=== PATIENT | male | born 1995 | race African-American/Black ===

== ENCOUNTER 2016-05-17 20:15 | Emergency (ER) | payer OTHER ==
--- NOTE | 2016-05-17 21:10 | UC ---
Throat Pain/Nasal Abdoul HPI - HPI Summary HPI Summary: complaint of sore throat that started this morning nasal congestion started thought it was his allergies bought some sinex nasal spray- used it once and now his throat is burning pain swollen lymph nodes denies fever denies headache, ear pain, cough took some bandryl allergy medicine yesterday - History of Current Complaint Chief Complaint: UC Stated Complaint: THROAT BURNING AFTER NOSE SPRAY Time Seen by Provider: 05/17/16 20:44 Hx Obtained From: Patient Related History: Seasonal Allergies - Allergies/Home Medications Allergies/Adverse Reactions: Allergies Allergy/AdvReac Type Severity Reaction Status Date / Time Latex Allergy Rash Verified 01/28/16 20:45 Home Medications: Home Medications Oxymetazoline HCl [Vicks Sinex Severe Nasal] 0.05 % NA 05/17/16 [History] PMH/Surg Hx/FS Hx/Imm Hx Previously Healthy: Yes Endocrine History Of: Denies: Diabetes, Thyroid Disease Cardiovascular History Of: Denies: Cardiac Disorders, Hypertension, Pacemaker/ICD, Myocardial Infarction Respiratory History Of: Denies: COPD, Asthma GI/ History Of: Denies: Gastroesophageal Reflux, Renal Disease Neurological History Of: Denies: CVA, Dementia, Seizures Psychological History Of: Reports: Anxiety, Depression Other History Of: Negative For: Anticoagulant Therapy - Surgical History Surgical History: None - Family History Known Family History: Positive: Cardiac Disease - mother Negative: Hypertension, Diabetes - Social History Occupation: Employed Full-time Lives: With Family Alcohol Use: None Substance Use Type: None Smoking Status (MU): Heavy Every Day Tobacco Smoker Type: Cigarettes When Did the Patient Quit Smoking/Using Tobacco: 04/20/14 Household Exposure Type: Cigarettes - Immunization History Most Recent Influenza Vaccination: n/a Most Recent Tetanus Shot: up to date Most Recent Pneumonia Vaccination: unknown Review of Systems Constitutional: Negative Skin: Negative Eyes: Negative ENT: Sore Throat Respiratory: Negative Cardiovascular: Negative Gastrointestinal: Negative Genitourinary: Negative Motor: Negative Neurovascular: Negative Musculoskeletal: Negative Neurological: Negative Psychological: Negative All Other Systems Reviewed And Are Negative: Yes Physical Exam Triage Information Reviewed: Yes Appearance: No Pain Distress, Well-Nourished Vital Signs Reviewed: Yes Eyes: Positive: Conjunctiva Clear ENT: Positive: Pharyngeal erythema, Nasal congestion, Nasal drainage, Tonsillar swelling. Negative: Tonsillar exudate Neck: Positive: No Lymphadenopathy Respiratory: Positive: Lungs clear, Normal breath sounds, No respiratory distress Cardiovascular: Positive: RRR, No Murmur, Pulses Normal Abdomen Description: Positive: Nontender, Soft Bowel Sounds: Positive: Present Musculoskeletal Exam: Normal Neurological: Positive: Alert Psychological Exam: Normal Skin Exam: Normal Throat Pain/Nasal Course/Dx - Course Course Of Treatment: pharyngitis with possible chemical burn from nasal spray - Differential Dx/Diagnosis Differential Diagnosis/HQI/PQRI: Pharyngitis Provider Diagnoses: pharyngitis Discharge - Discharge Plan Condition: Stable Disposition: HOME Patient Education Materials: Pharyngitis (ED) Referrals: No Primary Care Phys,NOPCP [Primary Care Provider] - [facility] [Outside] Additional Instructions: PHARYNGITIS (Sore Throat) What is Pharyngitis? The medical name for a sore throat is Pharyngitis. It is caused by an infection or irritation of your throat or tonsils. The infection can be caused by a virus or by bacteria. Not everyone with Pharyngitis needs antibiotics. Antibiotics will not make viral infections better, and they will not help a sore throat caused by irritation. Symptoms May Include: Sore throat Swelling of the glands in the neck Trouble or pain with swallowing Fever Headache Cough Extreme tiredness Ear pain Treatment Recommendations: Gargle every few hours with a solution of 1/4 teaspoon of salt dissolved in 1/ 2 cup of warm water. Drink plenty of warm beverages, like tea with lemon, (with or without honey) and soup. You may eat and drink cold foods and liquids like frozen yogurt, popsicles, and ice water if that makes your throat feel better. The goal is to keep you well hydrated. Use a "cool-mist" vaporizer or humidifier in the room where you spend most of your time. If you get a sore throat often, consider adding an electronic air filter and humidifier to your furnace system. Don't smoke. Do not eat spicy foods. Take medicine exactly as prescribed. If you do not think it is helping, call your healthcare provider. Do not increase how much or how often you take it without getting their OK first. Non-prescription anti-inflammatory medicine like ibuprofen (Motrin, Advil) or naproxen (Aleve) may help lessen the pain. You should not take these medicines if you have had bleeding in your stomach in the past. Acetaminophen ( Tylenol) is another choice of medicine that may help the pain. If pain medicine that makes you tired or sleepy or contains narcotics is prescribed, you should not drink, drive, or participate in any other activities that you need to be clear-headed for. Please keep all medicines out of the reach of children. Do not get in close contact with anyone you know who has a sore throat. Use throat lozenges (Cepostat, Olney, etc.) or suck on hard candy for temporary relief of the pain with swallowing. (Do not give to children under age 5.) Call Your Doctor or Return Here IF: Your symptoms do not start to get better within 2 days or you become worse. You have a fever over 101.0 F orally. You cant swallow liquids or saliva. You are drooling. You start to have trouble breathing. You start to have a rash. You start to have a stiff neck. You start to have pain in your chest. You start to have any symptoms that are new or worry you.
[2016-05-17 21:22] VITALS: BP 114/67
== END 2016-05-17 21:55 | disposition home or self-care (01) ==
LOC: UCEAST 20:15
DX: J02.9 Acute pharyngitis, unspecified (principal); Z11.4 Encounter for screening for human immunodeficiency virus [HIV]; F17.210 Nicotine dependence, cigarettes, uncomplicated
CPT/HCPCS: 36415; 86703; 87651; 99211; G0463

== ENCOUNTER 2016-07-16 11:12 | Emergency (ER) | payer OTHER ==
[2016-07-16 11:50] LABS: Hematocrit 50 % (42-52); Hemoglobin 16.7 g/dl (14.0-18.0); Mean Corpuscular HGB Conc 33 g/dl (31-36); Mean Corpuscular Hemoglobin 30 pg (27-31); Mean Corpuscular Volume 90 fL (80-94); Mean Platelet Volume 8 um3 (7.4-10.4); Red Cell Distribution Width 14 % (10.5-15); White Blood Count 7.4 10^3/ul (3.5-10.8)
--- NOTE | 2016-07-16 11:54 | ED ---
Psychiatric Complaint - HPI Summary HPI Summary: 21M presents with worsening depression over the past couple weeks. His sister was murdered a month ago. 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 He has not place to live. He states he occasionally drinks and uses ETOH. He was on depression meds a couple months ago but took himself off because they were not working. He sent some questionable suicidal text messages today. He denies any si/hi thoughts at moment. He states this is not the worst his depression has been. He was adopted so does not know if has family history of depression. - History Of Current Complaint Chief Complaint: EDMentalHealth Time Seen by Provider: 07/16/16 11:21 - Allergies/Home Medications Allergies/Adverse Reactions: Allergies Allergy/AdvReac Type Severity Reaction Status Date / Time Latex Allergy Rash Verified 01/28/16 20:45 PMH/Surg Hx/FS Hx/Imm Hx Endocrine/Hematology History: Denies: Hx Anticoagulant Therapy, Hx Diabetes, Hx Systemic Lupus Erythematosus, Hx Thyroid Disease Cardiovascular History: Denies: Hx Coronary Artery Disease, Hx Hypercholesterolemia, Hx Hypertension , Hx Myocardial Infarction, Hx Pacemaker/ICD, Hx Valvular Heart Disease Respiratory History: Denies: Hx Asthma, Hx Chronic Obstructive Pulmonary Disease (COPD) History: Denies: Hx Dialysis, Hx Renal Disease Musculoskeletal History: Denies: Hx Rheumatoid Arthritis Sensory History: Reports: Hx Contacts or Glasses - wears glasses Opthamlomology History: Reports: Hx Contacts or Glasses - wears glasses Neurological History: Denies: Hx Dementia, Hx Developmental Delay, Hx Seizures Psychiatric History: Reports: Hx Anxiety, Hx Depression, Hx Post Traumatic Stress Disorder, Hx of Violent Episodes Against Others Denies: Hx Eating Disorder, Hx Substance Abuse Infectious Disease History: No Infectious Disease History: Denies: Hx Hepatitis, Hx Human Immunodeficiency Virus (HIV), History Other Infectious Disease, Traveled Outside the [place] in Last 30 Days - Family History Known Family History: Positive: None - adopted, Cardiac Disease - mother Negative: Hypertension, Diabetes - Social History Alcohol Use: Occasionally Hx Substance Use: Yes - h/o marijuana and alcohol, not currently using Substance Use Type: Reports: Marijuana Hx Tobacco Use: Yes Smoking Status (MU): Heavy Every Day Tobacco Smoker Type: Cigarettes Review of Systems Negative: Fever Negative: Chest Pain Negative: Shortness Of Breath Positive: Depressed All Other Systems Reviewed And Are Negative: Yes Physical Exam Triage Information Reviewed: Yes Vital Signs On Initial Exam: Initial Vitals Temp Pulse Resp BP Pulse Ox 97.6 F 106 20 141/83 100 07/16/16 11:15 07/16/16 11:15 07/16/16 11:15 07/16/16 11:15 07/16/16 11:15 Vital Signs Reviewed: Yes Appearance: Positive: Well-Appearing Skin: Positive: Warm, Dry Head/Face: Positive: Normal Head/Face Inspection Eyes: Positive: Normal, Conjunctiva Clear ENT: Positive: Normal ENT inspection, Pharynx normal, TMs normal Respiratory/Lung Sounds: Positive: Clear to Auscultation, Breath Sounds Present Cardiovascular: Positive: Normal, RRR Psychiatric: Positive: Depressed - Samuel Coma Scale Coma Scale Total: 15 Diagnostics - Vital Signs Vital Signs Temp Pulse Resp BP Pulse Ox 07/16/16 11:15 97.6 F 106 20 141/83 100 - Laboratory Result Diagrams: 07/16/16 11:42 07/16/16 11:42 Lab Statement: Any lab studies that have been ordered have been reviewed, and results considered in the medical decision making process. Course/Dx - Course Course Of Treatment: 21M presents with inc depression. 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 set up some questionable suidical text messages today. has not been taking depression meds for months because said was not helping. is medically clear for [facility]. [facility] felt that he was safe to go home and has living arrangement set up for tonight. - Differential Dx/Clinical Impression Differential Diagnosis/HQI/PQRI: Positive: Anxiety, Depression, Suicidal Ideation Provider Diagnosis: Depressive disorder Discharge - Discharge Plan Condition: Stable Disposition: HOME Referrals: No Primary Care Phys,NOPCP [Primary Care Provider] -
[2016-07-16 12:06] LABS: ALT 12 U/L (7-52); AST 14 U/L (13-39); Albumin 4.6 g/dL (3.2-5.2); Alkaline Phosphatase 68 U/L (34-104); Anion Gap 8 mmol/L (2-11); BUN/Creatinine Ratio 9.1 (8-20); Blood Urea Nitrogen 9 mg/dL (6-24); CO2 Carbon Dioxide 27 mmol/L (22-32); Calcium 9.7 mg/dL (8.6-10.3); Chloride 102 mmol/L (101-111); EGFR African American 120.5 (>60); EGFR Non-African American 93.7 (>60); Globulin 3.4 g/dL (2-4); Glucose 84 mg/dL (70-100); Potassium 4.1 mmol/L (3.5-5.0); Sodium 137 mmol/L (133-145)
[2016-07-16 12:39] LABS: TSH (Thyroid Stimulating Horm) 1.02 mcIU/mL (0.34-5.60)
[2016-07-16 12:41] LABS: Acetaminophen < 15 mcg/mL; Alcohol < 10 mg/dL (<10); Salicylate < 2.50 mg/dL (<30)
[2016-07-16 14:25] VITALS: BP 122/88
== END 2016-07-16 14:24 | disposition home or self-care (01) ==
LOC: ED 11:12
DX: F32.9 Major depressive disorder, single episode, unspecified (principal); F17.210 Nicotine dependence, cigarettes, uncomplicated
CPT/HCPCS: 36415; 80053; 80320; 80329; 84443; 85025; 99283; G0480

== ENCOUNTER 2016-11-09 17:25 | Emergency (ER) | payer OTHER ==
[2016-11-09 18:19] VITALS: BP 111/56
[2016-11-09] MEDS ORDERED: Al Hydrox/Mg Hydrox/Simet LIQ* 30 ML UDC PO ONE (20:03)
--- NOTE | 2016-11-09 20:09 | UC ---
Abdominal Pain Male HPI - HPI Summary HPI Summary: Patient presents to the with CC of vomiting x 3 with specks of blood which occurred between 9am and 12n this morning. Denies any nausea at this time. Denies C/D. He states this morning he took 2 pills which were caffeine/ephedra pills to try to help him stay awake this morning on his long trip- but 2 hours later felt nauseous with heartburn and then vomited. This has never happened before and he has never taken these medications before. Denies any other symptoms at this time. - History of Current Complaint Chief Complaint: UCGI Stated Complaint: VOMITING Time Seen by Provider: 11/09/16 19:54 Hx Obtained From: Patient Onset/Duration: Sudden Onset Timing: Constant Severity Initially: Mild Severity Currently: Mild Pain Intensity: 5 Pain Scale Used: 0-10 Numeric Alleviating Factor(s): Rest Associated Signs And Symptoms: Positive: Vomiting - Allergies/Home Medications Allergies/Adverse Reactions: Allergies Allergy/AdvReac Type Severity Reaction Status Date / Time Latex Allergy Rash Verified 11/09/16 18:19 PMH/Surg Hx/FS Hx/Imm Hx Previously Healthy: Yes Other History Of: Negative For: Anticoagulant Therapy - Surgical History Surgical History: Yes Surgery Procedure, Year, and Place: WISDOM TEETH - Family History Known Family History: Positive: None - adopted, Cardiac Disease - mother Negative: Hypertension, Diabetes - Social History Occupation: Employed Full-time Lives: With Family Alcohol Use: Occasionally Substance Use Type: None Smoking Status (MU): Current Every Day Smoker Type: Cigarettes Amount Used/How Often: 2 PPD When Did the Patient Quit Smoking/Using Tobacco: 04/20/14 Household Exposure Type: Cigarettes - Immunization History Most Recent Influenza Vaccination: n/a Most Recent Tetanus Shot: up to date Most Recent Pneumonia Vaccination: unknown Review of Systems Constitutional: Negative Skin: Negative ENT: Negative Respiratory: Negative Gastrointestinal: Vomiting, Nausea Genitourinary: Negative Motor: Negative Neurological: Negative Psychological: Negative Is Patient Immunocompromised?: No All Other Systems Reviewed And Are Negative: Yes Physical Exam Triage Information Reviewed: Yes Appearance: Well-Appearing, Well-Nourished Vital Signs: Initial Vital Signs Temp 97.8 F 11/09/16 18:12 Pulse 78 11/09/16 18:12 Resp 16 11/09/16 18:12 BP 111/56 11/09/16 18:12 Pulse Ox 100 11/09/16 18:12 Vital Signs Reviewed: Yes Eye Exam: Normal Eyes: Positive: Conjunctiva Clear Neck exam: Normal Neck: Positive: Supple, No Lymphadenopathy Respiratory Exam: Normal Respiratory: Positive: Chest non-tender Cardiovascular Exam: Normal Cardiovascular: Positive: RRR Bowel Sounds: Positive: Present Musculoskeletal Exam: Normal Musculoskeletal: Positive: Strength Intact Neurological Exam: Normal Psychological Exam: Normal Psychological: Positive: Normal Response To Family Skin Exam: Normal Abd Pain Male Course/Dx - Course Course Of Treatment: patient given maalox with relief. Denies any symptoms currently. Explained to patient this is likely a reaction from the caffeine pills he took this morning. He denies other symptoms and is OK with his discharge plan. - Differential Dx/Clinical Impression Differential Diagnosis/HQI/PQRI: Other - vomiting secondary to oral medications , allergic reaction, N/V Provider Diagnoses: Hematemesis Discharge - Discharge Plan Condition: Stable Disposition: HOME Prescriptions: Al Hydrox/Mg Hydrox/Simet LIQ* [Maalox Plus*] 30 ml PO Q4H PRN #1 udc PRN Reason: Heartburn Patient Education Materials: Hematemesis (ED) Referrals: Juancho Jim MD [Primary Care Provider] - Additional Instructions: Maalox plus up to every 4 hours as needed for heartburn symptoms If any symptoms become worse, return to the UC immediately.
== END 2016-11-09 20:12 | disposition home or self-care (01) ==
LOC: UCEAST 17:25
DX: K92.0 Hematemesis (principal); Z11.4 Encounter for screening for human immunodeficiency virus [HIV]; Z91.040 Latex allergy status; F17.210 Nicotine dependence, cigarettes, uncomplicated
CPT/HCPCS: 36415; 86703; 99212; A9270-GY; G0463

== ENCOUNTER 2017-06-08 21:09 | Emergency (ER) | payer OTHER ==
[2017-06-08 21:25] VITALS: BP 130/74
[2017-06-08] MEDS ORDERED: cefTRIAXone VIAL(*) 250 MG VIAL IM ONE ×2 (21:25→21:32)
[2017-06-08] MEDS ORDERED: Azithromycin TAB* 250 MG PO ONE (21:26)
[2017-06-08] MEDS ORDERED: Lidocaine 1% MPF* 2 ML VIAL ONE (21:35)
--- NOTE | 2017-06-08 21:39 | UC ---
Complaint Male HPI - HPI Summary HPI Summary: 22 yo male states his partner told him she has chlamydia He is asymptomatic Desires HIV/hep/RPR testing - History of Current Complaint Chief Complaint: UCSTDScreening Stated Complaint: PERSONAL COMPLAINT Time Seen by Provider: 06/08/17 21:24 Hx Obtained From: Patient Onset/Duration: Other Severity Currently: None Pain Intensity: 0 Pain Scale Used: 0-10 Numeric Location: None Associated Signs And Symptoms: Positive: Negative - Risk Factors Testicular Torsion: Negative - Allergies/Home Medications Allergies/Adverse Reactions: Allergies Allergy/AdvReac Type Severity Reaction Status Date / Time latex Allergy Rash Verified 06/08/17 21:20 Home Medications: Home Medications NK [No Home Medications Reported] 06/08/17 [History Confirmed 06/08/17] PMH/Surg Hx/FS Hx/Imm Hx Previously Healthy: Yes Other History Of: Negative For: Anticoagulant Therapy - Surgical History Surgical History: Yes Surgery Procedure, Year, and Place: WISDOM TEETH - Family History Known Family History: Positive: None - adopted, Cardiac Disease - mother Negative: Hypertension, Diabetes - Social History Alcohol Use: Occasionally Substance Use Type: None Smoking Status (MU): Current Every Day Smoker Type: Cigarettes Amount Used/How Often: 2-3 CIG A DAY When Did the Patient Quit Smoking/Using Tobacco: 04/20/14 Household Exposure Type: Cigarettes - Immunization History Most Recent Influenza Vaccination: n/a Most Recent Tetanus Shot: up to date Most Recent Pneumonia Vaccination: unknown Review of Systems Constitutional: Negative Skin: Negative Eyes: Negative ENT: Negative Respiratory: Negative Cardiovascular: Negative Gastrointestinal: Negative Genitourinary: Negative Motor: Negative Neurovascular: Negative Musculoskeletal: Negative Neurological: Negative Psychological: Negative All Other Systems Reviewed And Are Negative: Yes Physical Exam Triage Information Reviewed: Yes Appearance: Well-Appearing, No Pain Distress, Well-Nourished Vital Signs: Initial Vital Signs Temp 99.1 F 06/08/17 21:20 Pulse 83 06/08/17 21:20 Resp 17 06/08/17 21:20 BP 130/74 06/08/17 21:20 Pulse Ox 99 06/08/17 21:20 Vital Signs Reviewed: Yes Eyes: Positive: Conjunctiva Clear ENT: Positive: Uvula midline. Negative: Hearing grossly normal, Nasal congestion, Nasal drainage, Trismus, Muffled voice, Hoarse voice Neck: Positive: Supple, Nontender Respiratory: Positive: Lungs clear, Normal breath sounds, No respiratory distress Cardiovascular: Positive: RRR, No Murmur Musculoskeletal: Positive: ROM Intact, No Edema Neurological: Positive: Alert Psychological Exam: Normal Skin Exam: Normal Complaint Male Course/Dx - Differential Dx/Diagnosis Provider Diagnoses: Chlamydia exposure Discharge - Sign-Out/Discharge Documenting (check all that apply): Discharge/Admit/Transfer - Discharge Plan Condition: Stable Disposition: HOME Patient Education Materials: Chlamydia (ED) Referrals: Juancho Jim MD [Primary Care Provider] - 2 Weeks (if needed) - Billing Disposition and Condition Condition: STABLE Disposition: HOME
== END 2017-06-08 22:02 | disposition home or self-care (01) ==
LOC: UCCORT 21:09
DX: Z20.2 Contact with and (suspected) exposure to infections with a predominantly sexual mode of transmission (principal); F17.210 Nicotine dependence, cigarettes, uncomplicated
CPT/HCPCS: 36415; 86592; 86703; 86706; 86803; 87340; 87491; 87591; 96372; 99212; A9270-GY; G0463; J0696

== ENCOUNTER 2017-07-27 19:58 | Emergency (ER) | payer OTHER ==
[2017-07-27 20:22] VITALS: BP 126/65
--- NOTE | 2017-07-27 21:25 | UC ---
Throat Pain/Nasal Abdoul HPI - HPI Summary HPI Summary: Pt presents with c/o sore throat,tender lymph nodes in neck and "bubble" feeling in chest. - History of Current Complaint Chief Complaint: UCGeneralIllness Stated Complaint: SORE THROAT, [place] Time Seen by Provider: 07/27/17 21:16 Hx Obtained From: Patient Onset/Duration: Gradual Onset, Lasting Weeks, Still Present Severity: Moderate Pain Intensity: 6 Cough: Nonproductive Associated Signs & Symptoms: Positive: Dysphagia - Epiglottits Risk Factors Epiglottis Risk Factors: Negative - Allergies/Home Medications Allergies/Adverse Reactions: Allergies Allergy/AdvReac Type Severity Reaction Status Date / Time latex Allergy Rash Verified 06/08/17 21:20 Home Medications: Home Medications Escitalopram Oxalate [Lexapro 10 mg] 10 mg PO DAILY 07/27/17 [History Confirmed 07/27/17] PMH/Surg Hx/FS Hx/Imm Hx Previously Healthy: Yes Other History Of: Negative For: Anticoagulant Therapy - Surgical History Surgical History: Yes Surgery Procedure, Year, and Place: WISDOM TEETH - Family History Known Family History: Positive: None - adopted, Cardiac Disease - mother Negative: Hypertension, Diabetes - Social History Occupation: Employed Full-time Lives: With Family Alcohol Use: Occasionally Substance Use Type: None Smoking Status (MU): Current Every Day Smoker Type: Cigarettes Amount Used/How Often: 2-3 CIG A DAY Have You Smoked in the Last Year: Yes When Did the Patient Quit Smoking/Using Tobacco: 04/20/14 Household Exposure Type: Cigarettes - Immunization History Most Recent Influenza Vaccination: n/a Most Recent Tetanus Shot: up to date Most Recent Pneumonia Vaccination: unknown Review of Systems Constitutional: Negative Skin: Negative Eyes: Negative ENT: Sore Throat Respiratory: Cough Cardiovascular: Negative Gastrointestinal: Negative Genitourinary: Negative Motor: Negative Neurovascular: Negative Musculoskeletal: Negative Neurological: Negative Psychological: Negative Is Patient Immunocompromised?: No All Other Systems Reviewed And Are Negative: Yes Physical Exam Triage Information Reviewed: Yes Appearance: Well-Appearing Vital Signs: Initial Vital Signs Temp 98.4 F 07/27/17 20:17 Pulse 88 07/27/17 20:17 Resp 15 07/27/17 20:17 BP 126/65 07/27/17 20:17 Pulse Ox 98 07/27/17 20:17 Vital Signs Reviewed: Yes Eye Exam: Normal ENT Exam: Normal Dental Exam: Normal Neck exam: Other Neck: Positive: Enlarged Nodes @ - bilateral submandibular, Respiratory Exam: Normal Cardiovascular Exam: Normal Musculoskeletal Exam: Normal Neurological Exam: Normal Psychological Exam: Normal Skin Exam: Normal Throat Pain/Nasal Course/Dx - Differential Dx/Diagnosis Differential Diagnosis/HQI/PQRI: Influenza, Pharyngitis, URI Provider Diagnoses: viral syndrome Discharge - Sign-Out/Discharge Documenting (check all that apply): Discharge/Admit/Transfer - Discharge Plan Condition: Stable Disposition: HOME Patient Education Materials: Viral Syndrome (ED) Referrals: Juancho Jim MD [Primary Care Provider] - If Needed - Billing Disposition and Condition Condition: STABLE Disposition: Home
== END 2017-07-27 21:31 | disposition home or self-care (01) ==
LOC: UCCORT 19:58
DX: B34.9 Viral infection, unspecified (principal); J02.9 Acute pharyngitis, unspecified; R59.0 Localized enlarged lymph nodes; F17.210 Nicotine dependence, cigarettes, uncomplicated; Z91.040 Latex allergy status
CPT/HCPCS: 99211; G0463

== ENCOUNTER 2018-09-23 21:36 | Emergency (ER) | payer OTHER ==
--- NOTE | 2018-09-23 22:37 | ED ---
Complex/Multi-Sys Presentation - HPI Summary HPI Summary: 23-year-old male presents with potential asbestos and lead exposure. 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 Denies any chest pain or shortness breath. No cough. He does have a migraine. No bowel pain. No nausea vomiting. Has no medical conditions. He states he does not feel ill. - History Of Current Complaint Chief Complaint: EDChemNuclearExpose Time Seen by Provider: 09/23/18 22:25 - Allergies/Home Medications Allergies/Adverse Reactions: Allergies Allergy/AdvReac Type Severity Reaction Status Date / Time latex Allergy Rash Verified 09/23/18 21:39 PMH/Surg Hx/FS Hx/Imm Hx Endocrine/Hematology History: Denies: Hx Anticoagulant Therapy, Hx Diabetes, Hx Systemic Lupus Erythematosus, Hx Thyroid Disease Cardiovascular History: Denies: Hx Coronary Artery Disease, Hx Hypercholesterolemia, Hx Hypertension , Hx Myocardial Infarction, Hx Pacemaker/ICD, Hx Valvular Heart Disease Respiratory History: Denies: Hx Asthma, Hx Chronic Obstructive Pulmonary Disease (COPD) History: Denies: Hx Dialysis, Hx Renal Disease Musculoskeletal History: Denies: Hx Rheumatoid Arthritis Sensory History: Reports: Hx Contacts or Glasses - wears glasses Opthamlomology History: Reports: Hx Contacts or Glasses - wears glasses Neurological History: Denies: Hx Dementia, Hx Developmental Delay, Hx Seizures Psychiatric History: Reports: Hx Anxiety, Hx Depression, Hx Post Traumatic Stress Disorder, Hx of Violent Episodes Against Others Denies: Hx Eating Disorder, Hx Substance Abuse - Surgical History Surgery Procedure, Year, and Place: WISDOM TEETH Infectious Disease History: No Infectious Disease History: Denies: Hx Hepatitis, Hx Human Immunodeficiency Virus (HIV), History Other Infectious Disease, Traveled Outside the [place] in Last 30 Days - Family History Known Family History: Positive: Cardiac Disease - mother Negative: Hypertension, Diabetes - Social History Alcohol Use: Occasionally Hx Substance Use: Yes - h/o marijuana and alcohol, not currently using Substance Use Type: Reports: None Hx Tobacco Use: Yes Smoking Status (MU): Current Every Day Smoker Type: Cigarettes Amount Used/How Often: 2-3 CIG A DAY Have You Smoked in the Last Year: Yes Review of Systems Negative: Fever Negative: Chest Pain Negative: Shortness Of Breath Negative: Abdominal Pain Positive: Headache All Other Systems Reviewed And Are Negative: Yes Physical Exam Triage Information Reviewed: Yes Vital Signs On Initial Exam: Initial Vitals Temp Pulse Resp BP Pulse Ox 98.7 F 66 18 126/84 98 09/23/18 21:38 09/23/18 21:38 09/23/18 21:38 09/23/18 21:38 09/23/18 21:38 Vital Signs Reviewed: Yes Appearance: Positive: Well-Appearing Skin: Positive: Warm, Dry Head/Face: Positive: Normal Head/Face Inspection Eyes: Positive: Normal, EOMI, DARWIN, Conjunctiva Clear ENT: Positive: Normal ENT inspection, Pharynx normal, TMs normal Respiratory/Lung Sounds: Positive: Clear to Auscultation, Breath Sounds Present Cardiovascular: Positive: Normal, RRR Abdomen Description: Positive: Nontender, Soft Bowel Sounds: Positive: Present Musculoskeletal: Positive: Normal Neurological: Positive: Normal Psychiatric: Positive: Normal Diagnostics - Vital Signs Vital Signs Temp Pulse Resp BP Pulse Ox 09/23/18 21:38 98.7 F 66 18 126/84 98 - Laboratory Lab Statement: Any lab studies that have been ordered have been reviewed, and results considered in the medical decision making process. Complex Multi-Symp Course/Dx Course Of Treatment: 23-year-old male presents with potential asbestos and lead exposure. 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 Denies any chest pain or shortness breath. No cough. He does have a migraine. No bowel pain. No nausea vomiting. Has no medical conditions. He states he does not feel ill. On exam lungs clear auscultation. Abdomen soft nontender. Discussed no specific tests for asbestos. We will get lab tests for lead but do not believe will be a critical level. Told will call if lead level is too high. Patient understands agrees with plan. - Diagnoses Differential Diagnoses/HQI/PQRI: Other - pneumonia, lead exposure Provider Diagnoses: Lead exposure Discharge - Sign-Out/Discharge Documenting (check all that apply): Patient Departure Patient Received Moderate/Deep Sedation with Procedure: No - Discharge Plan Condition: Good Disposition: HOME Referrals: Bobo Sharma MD [Primary Care Provider] - Additional Instructions: follow up with primary Return to ED if develop any new or worsening symptoms - Billing Disposition and Condition Condition: GOOD Disposition: Home
[2018-09-23 23:05] VITALS: BP 116/75
[2018-09-23 23:47] LABS: HIV 4th Generation Negative (Negative)
== END 2018-09-23 23:04 | disposition home or self-care (01) ==
LOC: ED 21:36
DX: Z77.011 Contact with and (suspected) exposure to lead (principal); Z77.090 Contact with and (suspected) exposure to asbestos; G43.909 Migraine, unspecified, not intractable, without status migrainosus; Z91.040 Latex allergy status; F17.210 Nicotine dependence, cigarettes, uncomplicated
CPT/HCPCS: 36415; 83655; 87389; 99282